=== PATIENT | male | born 1980 | race African-American/Black ===

== ENCOUNTER 2017-09-20 14:54 | Emergency (ER) | payer MEDICARE, MEDICAID ==
[2017-09-20] MEDS ORDERED: MORPHINE SULFATE 10 MG/ML INJ IV ONE (15:41)
[2017-09-20] MEDS ORDERED: NORMAL SALINE 1000 ML 1,000 ML IV ONE (15:41)
[2017-09-20] MEDS ORDERED: CLINDAMYCIN 600 MG/D5W RTU 600 MG/50 ML RTUPB IV ONE (16:00)
[2017-09-20] MEDS ORDERED: MORPHINE SULFATE 10 MG/ML INJ IM ONE (16:34)
--- NOTE | 2017-09-20 17:09 | RADIOLOGY REPORT (SQ) ---
EXAM DESCRIPTION: CT ABD/PELVIS NO ORAL OR IV COMPLETED DATE/TIME: 09/20/2017 4:48 pm REASON FOR STUDY: left buttock erythema, induration, abd pain COMPARISON: None. TECHNIQUE: CT scan of the abdomen and pelvis performed without intravenous or oral contrast. Images reviewed with lung, soft tissue, and bone windows. Reconstructed coronal and sagittal MPR images revi ewed. All images stored on PACS. All CT scanners at this facility use dose modulation, iterative reconstruction, and/or weight based d osing when appropriate to reduce radiation dose to as low as reasonably achievable (ALARA). [facility]: Dose Right [facility]: CareDose [facility]: Dose Right [facility]: Teradose 4D [facility]: [employer] RADIATION DOSE: mGy. LIMITATIONS: None. FINDINGS: LOWER CHEST: No significant findings. No nodules or infiltrates. NON-CONTRASTED LIVER, SPLEEN, ADRENALS: Evaluation limited by lack of IV contrast. No identified sign ificant masses. PANCREAS: No masses. No peripancreatic inflammatory changes. GALLBLADDER: No identified stones by CT criteria. No inflammatory changes to suggest cholecystitis. RIGHT KIDNEY AND URETER: Well circumscribed low density mass(es) statistically most likely to be cyst (s). Assessment limited by lack of iv contrast. No significant calcifications. No hydronephrosis or hydroureter. LEFT KIDNEY AND URETER: No suspicious masses. Assessment limited by lack of IV contrast. No signifi cant calcifications. No hydronephrosis or hydroureter. AORTA AND RETROPERITONEUM: No aneurysm. No retroperitoneal masses or adenopathy. BOWEL AND PERITONEAL CAVITY: No obvious masses or inflammatory changes. No free fluid. APPENDIX: Normal. PELVIS, BLADDER, AND ABDOMINAL WALL:No abnormal masses. No free fluid. Bladder normal. BONES: No significant findings. OTHER: There is fat stranding along the left groin extending minimally into the soft tissues of the flank on the left. No soft tissue abscess is identified. No fluid collection. IMPRESSION: There is fat stranding along the left groin in extending minimally into the soft tissues of the left flank. No soft tissue abscess or fluid collection. COMMENT: Quality ID # [id number]: Final reports with documentation of one or more dose reduction techniques (e.g., Automated exposure control, adjustment of the mA and/or kV according to patient size, use of iterative reconstruction technique) TECHNICAL DOCUMENTATION: JOB ID: [id number]- All Rights Reserved Reading location - IP/workstation name: [email or web address]
[2017-09-20] MEDS ORDERED: OXYCODONE-ACETAMINOPHEN 5-325 MG TABLET PO ONE (17:19)
[2017-09-20] MEDS ORDERED: SULFAMETHOXAZOLE/TRIMETHOPRIM 800-160 MG TABLET PO ONE (17:19)
[2017-09-20] MEDS ORDERED: FENTANYL CITRATE INJ/PF 100 MCG/2 ML AMPUL IM ONE (18:27)
--- NOTE | 2017-09-20 19:01 | ER Document Report ---
ED Skin Rash/Insect Bite/Abscs - General Chief Complaint: Abscess Stated Complaint: POSSIBLE ABSCESS Time Seen by Provider: 09/20/17 15:22 Mode of Arrival: Ambulatory Information source: Patient Notes: Pt is a 37 year old male with HIV, HTN not on any blood pressure meds who presents to the ER today for left buttock pain x 2 days. He denies history of abscess, denies injury, states it's red and swollen, painful worsening over the past 2 days. He admits that the pain from his buttocks seems to be "radiating" to his abdomen in the lower right and left sides, states he can feel "tumors" there that he has "had before." He denies fever at home, stating his temperature has been 99 at the highest, admits to some chills. He hasn't taken his lisinopril-hctz in many months due to not being able to follow up with his doctor. He states he usually has a high heart rate with his high blood pressure. Denies history of MRSA. TRAVEL OUTSIDE OF THE [place] IN LAST 30 DAYS: No - Related Data Allergies/Adverse Reactions: Penicillins Allergy (Verified 09/20/17 15:43) Edema Past Medical History - General Information source: Patient - Social History Smoking Status: Never Smoker Chew tobacco use (# tins/day): No Frequency of alcohol use: None Drug Abuse: None Family History: Reviewed & Not Pertinent Patient has suicidal ideation: No Patient has homicidal ideation: No - Past Medical History Cardiac Medical History: Reports: Hx Hypertension Renal/ Medical History: Denies: Hx Peritoneal Dialysis Review of Systems - Review of Systems Constitutional: See HPI EENT: No symptoms reported Cardiovascular: No symptoms reported Respiratory: No symptoms reported Gastrointestinal: See HPI Genitourinary: No symptoms reported Male Genitourinary: No symptoms reported Musculoskeletal: No symptoms reported Skin: See HPI Hematologic/Lymphatic: No symptoms reported Neurological/Psychological: No symptoms reported Physical Exam - Vital signs Vitals: Temp Pulse Resp BP Pulse Ox 99.7 F 122 H 18 199/121 H 98 09/20/17 15:01 09/20/17 15:01 09/20/17 15:01 09/20/17 15:01 09/20/17 15:01 - Notes Notes: PHYSICAL EXAMINATION: GENERAL: uncomfortable appearing, laying on right side, but in no acute distress. HEAD: Atraumatic, normocephalic. EYES: Pupils equal round and reactive to light, extraocular movements intact, sclera anicteric, conjunctiva are normal. NECK: Normal range of motion, supple without lymphadenopathy LUNGS: CTAB and equal. No wheezes rales or rhonchi. HEART: tachycardic with regular rhythm without murmurs ABDOMEN: Soft, old scars to upper, middle and left lower abd, no tenderness. No guarding, no rebound BACK: no vertebral tenderness, normal ROM GI/: no CVA tenderness EXTREMITIES: Normal range of motion, no pitting edema. No cyanosis. NEUROLOGICAL: Cranial nerves grossly intact. Normal sensory/motor exams. PSYCH: Normal mood, normal affect. SKIN: Warm, Dry, normal turgor, left buttock with mild erythema approximately 3cm by 2 cm to lateral buttock with 3 small areas of mild induration, no fluctance appreciated, no obvious abscess, moderately tender to palpatioin Course - Re-evaluation Re-evalutation: 09/21/17 09:41 pt's heart rate did reduce to under 100 multiple times when I was in the room, however lowest pulse captured from monitor was 103. He does have a history of tachycardia and is hypertensive today. His bp did also reduce here. He feels better with pain medication given here. CT abd/pelvis reveals fat stranding left buttock to left flank but no abscess. He is afebrile here. Pt was started on bactrim, given prescription for his lisinopril/hctz that he was taking bid that he says worked well for his htn. told to follow up with pcp and if symptoms worsen return here. We attempted multiple times to get an IV for labwork, however he is a difficult stick and states "they always have to do a central line." I see no reason for central line today as he looks well clinically and his vitals have improved with pain medication only. I believe his tachycardia of up to 122 on arrival was due to pain to the left buttock. He is also very anxious. He is very grateful for care today and promises to return with worsening symptoms such as fever over 100.4, worsening buttock pain or area of fluctuance that may be able to be drained. Dr. Clarke consulted on case. - Vital Signs Vital signs: Temp Pulse Resp BP Pulse Ox 99.7 F 122 H 13 166/112 H 100 09/20/17 15:01 09/20/17 15:01 09/20/17 19:07 09/20/17 19:07 09/20/17 19:07 Discharge - Discharge Clinical Impression: Cellulitis of left buttock HTN (hypertension) Qualifiers: Hypertension type: unspecified Qualified Code(s): I10 - Essential (primary) hypertension Condition: Stable Disposition: HOME, SELF-CARE Additional Instructions: Return immediately for any new or worsening symptoms. Follow up with primary care provider, call tomorrow to make followup appointment. Prescriptions: Lisinopril/Hydrochlorothiazide [Lisinopril-Hctz 20-12.5 mg Tab] 1 each PO BID # 60 tablet Oxycodone HCl/Acetaminophen [Percocet 5-325 mg Tablet] 1 - 2 tab PO Q4H PRN #15 tablet PRN Reason: Sulfamethoxazole/Trimethoprim [Bactrim 400-80 mg Tablet] 1 each PO BID #20 tablet
[2017-09-20 19:09] VITALS: BP 166/112
== END 2017-09-20 19:17 | disposition home or self-care (01) ==
LOC: ER 14:54
DX: L03.317 Cellulitis of buttock (principal); I10 Essential (primary) hypertension; T46.4X6A Underdosing of angiotensin-converting-enzyme inhibitors, initial encounter; T50.2X6A Underdosing of carbonic-anhydrase inhibitors, benzothiadiazides and other diuretics, initial encounter; Z91.128 Patient's intentional underdosing of medication regimen for other reason; Z91.14 Patient's other noncompliance with medication regimen; R10.30 Lower abdominal pain, unspecified; F41.9 Anxiety disorder, unspecified; R00.0 Tachycardia, unspecified; Z21 Asymptomatic human immunodeficiency virus [HIV] infection status; Z88.0 Allergy status to penicillin
CPT/HCPCS: 99284; 96372; 74176; J3010; J2270; A9270 ×2

== ENCOUNTER 2018-04-06 08:38 | Emergency (ER) | payer MEDICARE, MEDICAID ==
[2018-04-06] MEDS ORDERED: MORPHINE SULFATE 10 MG/ML INJ IV ONE (09:26)
[2018-04-06] MEDS ORDERED: ONDANSETRON HCL INJ/PF 4 MG/2 ML SDV IV ONE (09:26)
[2018-04-06] MEDS ORDERED: METOCLOPRAMIDE HCL ORAL SOLN 10 MG/10 ML UDCUP PO ONE (09:26)
[2018-04-06] MEDS ORDERED: MAG HYDROX/AL HYDROX/SIMETH SUSP 30 ML UDCUP PO ONE (09:26)
[2018-04-06] MEDS ORDERED: LIDOCAINE 2% VISCOUS SOLN 20 ML UDCUP PO PRN (09:26)
[2018-04-06] MEDS ORDERED: LIDOCAINE 2% VISCOUS SOLN 20 ML UDCUP PO ONE (09:26)
[2018-04-06] MEDS ORDERED: MAG HYDROX/AL HYDROX/SIMETH SUSP 30 ML UDCUP PO PRN (09:26)
[2018-04-06] MEDS ORDERED: RINGERS SOLUTION,LACTATED 1,000 ML IV ONE (09:30)
[2018-04-06] MEDS ORDERED: SULFAMETHOX/TRIMETH 800-160 MG/10 ML VIAL IV ONE (09:30)
--- NOTE | 2018-04-06 09:35 | ER Document Report ---
ED General <SANDRA DALAL - Last Filed: 04/06/18 23:38> - General Mode of Arrival: Ambulatory Information source: Patient, [facility] Records TRAVEL OUTSIDE OF THE [place] IN LAST 30 DAYS: No - HPI Onset: Last week Onset/Duration: Gradual, Constant, Persistent, Worse Quality of pain: Burning, Throbbing Severity: Moderate Associated symptoms: Chest pain, Chills. denies: Diarrhea, Fever, Nausea, Vomiting, Shortness of breath, Weakness Exacerbated by: Food Relieved by: Denies Similar symptoms previously: No Recently seen / treated by doctor: Yes <GEORGIA CARCAMO - Last Filed: 04/07/18 11:43> - General Chief Complaint: Epigastric Pain Stated Complaint: CHEST/STOMACH PAIN, VOMITING Time Seen by Provider: 04/06/18 08:59 Notes: 37-year-old male with hypertension, HIV, esophageal ulcers presents with complaint of chest pain that started 1 week prior to arrival. Patient states that he underwent an upper endoscopy 1 week prior to arrival with and has had a constant throbbing chest pain since then. Patient states the pain has not went away at all. Patient has had associated nausea without vomiting and some mild lightheadedness. He does report poor p.o. intake secondary to pain. Patient is an HIV patient and has not been able to take his daily Bactrim or antiviral therapy for 1 week. Patient denies any fever, chills , vomiting, abdominal pain. (GEORGIA CARCAMO) - Related Data Allergies/Adverse Reactions: Penicillins Allergy (Verified 04/06/18 08:41) Edema Past Medical History - General Information source: Patient, Dr. Mansfield, [facility] Records - Social History Smoking Status: Never Smoker Chew tobacco use (# tins/day): No Frequency of alcohol use: None Drug Abuse: None Lives with: Family Family History: Reviewed & Not Pertinent Patient has suicidal ideation: No Patient has homicidal ideation: No - Past Medical History Cardiac Medical History: Reports: Hx Hypertension Renal/ Medical History: Denies: Hx Peritoneal Dialysis GI Medical History: Reports: Hx Gastroesophageal Reflux Disease, Hx Ulcer <GEORGIA CARCAMO - Last Filed: 04/07/18 11:43> Review of Systems <SANDRA DALAL - Last Filed: 04/06/18 23:38> <GEORGIA CARCAMO - Last Filed: 04/07/18 11:43> - Review of Systems Notes: REVIEW OF SYSTEMS: CONSTITUTIONAL : Denies fever, sweats. Denies recent illness. Denies weight loss, recent hospitalizations. EENT: Denies visual changes, eye pain. Denies sore throat, oral lesions, difficulty swallowing. CARDIOVASCULAR: Denies palpitations. Denies lower extremity edema. RESPIRATORY: Denies cough. Denies shortness of breath, wheezing. GASTROINTESTINAL: Denies abdominal pain or distention. Denies nausea, vomiting , or diarrhea. Denies blood in vomitus, stools, or per rectum. Denies black, tarry stools. Denies constipation. GENITOURINARY: Denies difficulty urinating, painful urination, frequency, blood in urine, testicular pain or penile discharge. MUSCULOSKELETAL: Denies back or neck pain or stiffness. Denies joint pain or swelling. SKIN: Denies rash, lesions or sores. HEMATOLOGIC : Denies easy bruising or bleeding. LYMPHATIC: Denies swollen glands. NEUROLOGICAL: Denies confusion or altered mental status. Denies loss of consciousness. Denies dizziness Denies headache. Denies weakness or paralysis. Denies problems difficulty with ambulation, slurred speech. Denies sensory loss, numbness, or tingling. Denies seizures. PSYCHIATRIC: Denies anxiety or stress. Denies depression, suicidal ideation, or (GEORGIA CARCAMO) Physical Exam <MULGUETASANDRA Bernal - Last Filed: 04/06/18 23:38> <GEORGIA CARCAMO - Last Filed: 04/07/18 11:43> - Vital signs Vitals: Temp Pulse Resp BP Pulse Ox 98.5 F 106 H 18 214/131 H 97 04/06/18 08:41 04/06/18 08:41 04/06/18 08:41 04/06/18 08:41 04/06/18 08:41 - Notes Notes: PHYSICAL EXAMINATION: GENERAL: Tearful, appears to be uncomfortable HEAD: Atraumatic, normocephalic. EYES: Pupils equal round and reactive to light, extraocular movements intact, sclera anicteric, conjunctiva are normal. ENT: Nares patent, oropharynx clear without exudates. Moist mucous membranes. NECK: Normal range of motion, supple without lymphadenopathy. Airway patent LUNGS: Breath sounds clear to auscultation bilaterally and equal. No wheezes rales or rhonchi. HEART: Regular rate and rhythm without murmurs. Chest wall pain with palpation. No crepitus. ABDOMEN: Soft, nontender, nondistended abdomen. No guarding, no rebound. No masses appreciated. Musculoskeletal: Normal range of motion, no pitting or edema. No cyanosis. NEUROLOGICAL: Cranial nerves grossly intact. Normal speech, normal gait. Normal sensory, motor exams PSYCH: Normal mood, normal affect. SKIN: Warm, Dry, normal turgor, no rashes or lesions noted. (GEORGIA CARCAMO) Course - Laboratory Result Diagrams: 04/06/18 09:35 04/06/18 09:35 <SANDRA DALAL - Last Filed: 04/06/18 23:38> - Laboratory Result Diagrams: 04/07/18 08:40 04/06/18 09:35 - Diagnostic Test Radiology reviewed: Image reviewed, Reports reviewed - EKG Interpretation by [place] EKG shows normal: Sinus rhythm Rate: Normal Rhythm: NSR Voltage: Consistant with LVH When compared to previous EKG there are: Previous EKG unavailable - Diffuse T wave inversion. <GEORGIA CARCAMO - Last Filed: 04/07/18 11:43> - Re-evaluation Re-evalutation: 04/06/18 17:26 F/U with VQ scan and troponin per Dr. Segura, both tests negative. 04/06/18 18:30 5 and called stated they stepped patient down to PCU bed as EKG discussed with Dr. Carcamo has no changes from previous EKG on file at provided. Cardiology will admit patient but no PCU beds available at this time and patient is on hold. Nitro drip is being continued patient resting comfortably at this time. 04/06/18 23:38 Repeat troponins all negative, wnl, still awaiting transport. (SANDRA DALAL) Laboratory 04/06/18 04/06/18 04/06/18 09:35 09:35 09:35 WBC 4.3 RBC 5.66 H Hgb 15.1 Hct 45.4 MCV 80 MCH 26.6 L MCHC 33.2 RDW 14.1 H Plt Count 170 Total Counted 100 Seg Neutrophils % Not Reportable Seg Neuts % (Manual) 25 L Lymphocytes % Not Reportable Lymphocytes % (Manual) 58 H Atypical Lymphs % 8 Monocytes % Not Reportable Monocytes % (Manual) 7 Eosinophils % Not Reportable Eosinophils % (Manual) 2 Basophils % Not Reportable Basophils % (Manual) 0 Absolute Neutrophils Not Reportable Abs Neuts (Manual) 1.1 L Absolute Lymphocytes Not Reportable Abs Lymphs (Manual) 2.8 Absolute Monocytes Not Reportable Abs Monocytes (Manual) 0.3 Absolute Eosinophils Not Reportable Absolute Eos (Manual) 0.1 Absolute Basophils Not Reportable Abs Basophils (Manual) 0.0 Platelet Comment ADEQUATE Polychromasia SLIGHT Anisocytosis SLIGHT Sodium 143.0 Potassium 4.2 Chloride 104 Carbon Dioxide 29 Anion Gap 10 BUN 17 Creatinine 1.37 H Est GFR ( Amer) > 60 Est GFR (Non-Af Amer) 58 L Glucose 93 Calcium 9.6 Total Bilirubin 0.6 Direct Bilirubin 0.4 Neonat Total Bilirubin Not Reportable Neonat Direct Bilirubin Not Reportable Neonat Indirect Bili Not Reportable AST 60 H ALT 62 Alkaline Phosphatase 112 Troponin I 0.022 Total Protein 8.8 H Albumin 4.4 Lipase 63.4 04/06/18 11:17 WBC RBC Hgb Hct MCV MCH MCHC RDW Plt Count Total Counted Seg Neutrophils % Seg Neuts % (Manual) Lymphocytes % Lymphocytes % (Manual) Atypical Lymphs % Monocytes % Monocytes % (Manual) Eosinophils % Eosinophils % (Manual) Basophils % Basophils % (Manual) Absolute Neutrophils Abs Neuts (Manual) Absolute Lymphocytes Abs Lymphs (Manual) Absolute Monocytes Abs Monocytes (Manual) Absolute Eosinophils Absolute Eos (Manual) Absolute Basophils Abs Basophils (Manual) Platelet Comment Polychromasia Anisocytosis Sodium Potassium Chloride Carbon Dioxide Anion Gap BUN Creatinine Est GFR ( Amer) Est GFR (Non-Af Amer) Glucose Calcium Total Bilirubin Direct Bilirubin Neonat Total Bilirubin Neonat Direct Bilirubin Neonat Indirect Bili AST ALT Alkaline Phosphatase Troponin I 0.024 Total Protein Albumin Lipase Chest X-Ray 04/06/18 09:26 IMPRESSION: NO ACUTE RADIOGRAPHIC FINDING IN THE CHEST. Chest CT 04/06/18 09:35 IMPRESSION: NO SIGNIFICANT FINDING ON NON-CONTRASTED CHEST CT. 37-year-old male with hypertension, HIV presents with complaint of 1 week of persistent chest pain after undergoing an endoscopy. He describes the pain as pressure-like throbbing and associated with nausea and lightheadedness. Patient states that he has been unable to eat, drink or take any of his medications including his antiviral medications. Upon arrival patient is tachycardic, markedly hypertensive. Initially a CT of the chest was obtained to assess for esophageal perforation and this was within normal limits. Patient did receive sublingual nitro, multiple doses of narcotic pain medication and metoprolol without improvement of his chest pain or blood pressure. I did attempt to obtain a CTA but patient's IVs have blown x2. V/Q scan is pending. EKG was obtained and does show diffuse T wave inversions, left ventricular hypertrophy. I did not have an EKG to compare it to until I spoke to the cardiac connection nurse at [facility] who reviewed previous EKGs they had on file. Patient was given Lovenox prophylactically he did also receive a dose of Bactrim because he is on this chronically and has not been able to take it. Nitro drip was initiated. Systolic goal blood pressure 160- 170. 04/06/18 09:29 Patient's client relationship consultant Dr. Patel who has been contacted regarding the patient's complaint of chest pain since his endoscopy 1 week ago. 04/06/18 09:34 I was able to contact the patient's client relationship consultant who recommends CT of the chest and pain control. 04/06/18 12:40 Patient was reevaluated and despite 2 doses of Dilaudid, Zofran, GI cocktail he is having persistent pain. He is still significantly tachycardic with a heart rate in the 120s-130s. At this time I will obtain a CTA. 04/06/18 13:30 I spoke to our hospitalist who believes that with the patient's persistent chest pain he needs to be transferred to a facility that can perform a cardiac catheterization if it becomes necessary. Patient prefers [facility]. 04/06/18 13:37 Contacted [facility] cardiac connection for transfer. Awaiting callback. They were able to pull up an old EKG from 2013 which does show similar T wave inversion, left ventricular hypertrophy and minimal ST elevation in the anterior leads. 04/06/18 14:12 Patient accepted to provide [facility] by Dr. Burton. I did speak to his fellow who accepted on his behalf, suspects hypertensive urgency versus emergency. 04/06/18 14:13 04/06/18 14:14 04/06/18 15:17 Patient reevaluated. Despite an improvement in his blood pressure to 188/98 he continues to have chest pain. EKG repeated and unchanged. (GEORGIA CARCAMO) - Vital Signs Vital signs: Temp Pulse Resp BP Pulse Ox 98.3 F 106 H 14 171/116 H 95 04/07/18 01:08 04/06/18 08:41 04/07/18 11:21 04/07/18 11:21 04/07/18 11:21 - Laboratory Laboratory results interpreted by me: 04/06/18 04/06/18 04/07/18 09:35 09:35 08:40 RBC 5.66 H Hgb 13.1 L MCV 79 L MCH 26.6 L RDW 14.1 H 14.2 H Seg Neuts % (Manual) 25 L Lymphocytes % (Manual) 58 H Abs Neuts (Manual) 1.1 L Creatinine 1.37 H Est GFR (Non-Af Amer) 58 L AST 60 H Total Protein 8.8 H Critical Care Note - Critical Care Note Total time excluding time spent on procedures (mins): 40 - Minutes of critical care time spent in direct contact evaluating and reevaluating the patient, treating symptoms, reviewing labs and studies and speaking with family and consultants excluding any procedures <GEORGIA CARCAMO - Last Filed: 04/07/18 11:43> Discharge <SANDRA DALAL - Last Filed: 04/06/18 23:38> <GEORGIA CARCAMO - Last Filed: 04/07/18 11:43> - Discharge Clinical Impression: Renal insufficiency, Hypertensive urgency, Tachycardia, T wave inversion in EKG , Left ventricular hypertrophy Chest pain Qualifiers: Chest pain type: unspecified Qualified Code(s): R07.9 - Chest pain, unspecified Condition: Good Disposition: [facility]
[2018-04-06 09:43] LABS: HEMATOCRIT 45.4 % (37.9-51.0); HEMOGLOBIN 15.1 g/dL (13.5-17.0); MEAN CORPUSCULAR HEMOGLOBIN 26.6 pg (27.0-33.4); MEAN CORPUSCULAR HGB CONC 33.2 g/dL (32.0-36.0); MEAN CORPUSCULAR VOLUME 80 fl (80-97); PLATELET COUNT 170 10^3/uL (150-450); RED BLOOD COUNT 5.66 10^6/uL (4.35-5.55); RED CELL DISTRIBUTION WIDTH 14.1 % (11.5-14.0); WHITE BLOOD COUNT 4.3 10^3/uL (4.0-10.5)
[2018-04-06 10:00] LABS: ALANINE AMINOTRANSFERASE 62 U/L (21-72); ALBUMIN 4.4 g/dL (3.5-5.0); ALKALINE PHOSPHATASE 112 U/L (38-126); ANION GAP 10 (5-19); ASPARTATE AMINO TRANSFERASE 60 U/L (17-59); BILIRUBIN,DIRECT 0.4 mg/dL (0.0-0.4); BILIRUBIN,TOTAL 0.6 mg/dL (0.2-1.3); BLOOD UREA NITROGEN 17 mg/dL (7-20); CALCIUM 9.6 mg/dL (8.4-10.2); CARBON DIOXIDE 29 mmol/L (22-30); CHLORIDE 104 mmol/L (98-107); GLUCOSE 93 mg/dL (75-110); LIPASE 63.4 U/L (23-300); POTASSIUM 4.2 mmol/L (3.6-5.0); TOTAL PROTEIN 8.8 g/dL (6.3-8.2)
[2018-04-06 10:13] LABS: ABSOLUTE LYMPHOCYTES# (MANUAL) 2.8 10^3/uL (0.5-4.7); ABSOLUTE MONOCYTES # (MANUAL) 0.3 10^3/uL (0.1-1.4); ABSOLUTE NEUTROPHILS# (MANUAL) 1.1 10^3/uL (1.7-8.2); BASOPHILS % (MANUAL) 0 % (0-2); EOSINOPHILS % (MANUAL) 2 % (0-6); LYMPHOCYTES % (MANUAL) 58 % (13-45); MONOCYTES % (MANUAL) 7 % (3-13); SEGMENTED NEUTROPHILS % (MAN) 25 % (42-78); TOTAL CELLS COUNTED 100
[2018-04-06 10:14] LABS: ANISOCYTOSIS SLIGHT
[2018-04-06 10:15] LABS: PLATELET COMMENT ADEQUATE; POLYCHROMASIA SLIGHT
--- NOTE | 2018-04-06 10:29 | RADIOLOGY REPORT (SQ) ---
EXAM DESCRIPTION: CHEST 2 VIEWS COMPLETED DATE/TIME: 04/06/2018 10:07 am REASON FOR STUDY: chest pain COMPARISON: None. EXAM PARAMETERS: NUMBER OF VIEWS: two views TECHNIQUE: Digital Frontal and Lateral radiographic views of the chest acquired. RADIATION DOSE: NA LIMITATIONS: none FINDINGS: LUNGS AND PLEURA: No opacities, masses or pneumothorax. No pleural effusion. MEDIASTINUM AND HILAR STRUCTURES: No masses or contour abnormalities. HEART AND VASCULAR STRUCTURES: Heart upper limits of normal size. No evidence for failure. BONES: No acute findings. HARDWARE: None in the chest. OTHER: No other significant finding. IMPRESSION: NO ACUTE RADIOGRAPHIC FINDING IN THE CHEST. TECHNICAL DOCUMENTATION: JOB ID: [id number] 1908 [employer]- All Rights Reserved Reading location - IP/workstation name: [email or web address]
--- NOTE | 2018-04-06 10:31 | RADIOLOGY REPORT (SQ) ---
EXAM DESCRIPTION: CT CHEST WITHOUT COMPLETED DATE/TIME: 04/06/2018 10:13 am REASON FOR STUDY: Chest pain status post endoscopy COMPARISON: None. TECHNIQUE: CT scan performed of the chest without intravenous contrast. Images reviewed with lung, soft tissue and bone windows. Reconstructed coronal and sagittal MPR images reviewed. All images st ored on PACS. All CT scanners at this facility use dose modulation, iterative reconstruction, and/or weight based d osing when appropriate to reduce radiation dose to as low as reasonably achievable (ALARA). [facility]: Dose Right [facility]: CareDose [facility]: Dose Right [facility]: Teradose 4D [facility]: [employer] RADIATION DOSE: CT Rad equipment meets quality standard of care and radiation dose reduction techniq ues were employed. CTDIvol: 16.4 mGy. DLP: 661 mGy-cm. mGy. LIMITATIONS: No technical limitations. FINDINGS: LUNGS AND PLEURA: No masses, infiltrates, or pneumothorax. No pleural effusions or pleura l calcifications. HILAR AND MEDIASTINAL STRUCTURES: No identified masses or abnormal nodes. No obvious aneurysm. HEART AND VASCULAR STRUCTURES: No aneurysm. No pericardial effusion. UPPER ABDOMEN: Right renal cysts. Limited exam. THYROID AND OTHER SOFT TISSUES: No masses. No adenopathy. BONES: No significant finding. HARDWARE: None in the chest. OTHER: No other significant findings. IMPRESSION: NO SIGNIFICANT FINDING ON NON-CONTRASTED CHEST CT. TECHNICAL DOCUMENTATION: JOB ID: [id number] Quality ID # [id number]: Final reports with documentation of one or more dose reduction techniques (e.g., Au tomated exposure control, adjustment of the mA and/or kV according to patient size, use of iterative reconstruction technique) 2010 [employer]- All Rights Reserved Reading location - IP/workstation name: [email or web address]
[2018-04-06] MEDS ORDERED: NORMAL SALINE 1000 ML 1,000 ML IV ONE (10:54)
[2018-04-06] MEDS ORDERED: HYDROMORPHONE HCL INJ/PF 2 MG/ML AMPULE IV ONE ×2 (11:00→12:38)
[2018-04-06] MEDS ORDERED: PROMETHAZINE HCL INJ 25 MG/1 ML VIAL IV ONE ×3 (11:01→20:16)
[2018-04-06] MEDS ORDERED: NITROGLYCERIN 0.4 MG/TAB 25 TAB/BOTTLE SL PRN (13:31)
[2018-04-06] MEDS ORDERED: ASPIRIN 81 MG TABLET, CHEWABLE PO ONE (13:34)
[2018-04-06] MEDS ORDERED: ASPIRIN 81 MG TABLET, CHEWABLE ONE (13:35)
[2018-04-06] MEDS ORDERED: METOPROLOL TARTRATE PF/INJ 5 MG/5 ML SDV IV ONE (13:49)
[2018-04-06] MEDS: ENOXAPARIN SODIUM INJ 100 MG/1 ML DISP.SYRIN SUBCUT SCH (14:09)
[2018-04-06] MEDS: NITROGLYCERIN/D5W 50 MG/250 ML RTUINJ IV PRN (14:34)
[2018-04-06] MEDS ORDERED: PANTOPRAZOLE SODIUM 40 MG VIAL IV ONE (15:17)
--- NOTE | 2018-04-06 16:08 | RADIOLOGY REPORT (SQ) ---
EXAM DESCRIPTION: NM LUNG VENT/PERF SCAN COMPLETED DATE/TIME: 04/06/2018 3:58 pm REASON FOR STUDY: SOB TACHY COMPARISON: Chest x-ray and chest CT dated 04/06/2018. RADIONUCLIDE AND DOSE: 5.39 millicuries TC-99m MAA Intravenous 31.3 millicuries TC-99m DTPA Inhaled aerosol TECHNIQUE: Anterior and posterior views of the lungs acquired post ventilation of DTPA aerosol. Six views of the lungs acquired following injection of MAA. LIMITATIONS: None. FINDINGS: VENTILATION: Symmetric and homogeneous distribution of DTPA aerosol during ventilatory pha se. No significant areas of photopenia. PERFUSION: Perfusion images with normal homogenous activity and no wedge-shaped or segmental defects. No ventilation-perfusion mismatches. OTHER: No other significant finding. IMPRESSION: NORMAL VENTILATION-PERFUSION LUNG SCAN. NEGATIVE FOR PULMONARY EMBOLI. TECHNICAL DOCUMENTATION: JOB ID: [id number] [employer]- All Rights Reserved Reading location - IP/workstation name: [email or web address]
[2018-04-06] MEDS: HYDROMORPHONE HCL INJ/PF 2 MG/ML AMPULE IV PRN ×2 (20:08→23:46)
[2018-04-07] MEDS: ENOXAPARIN SODIUM INJ 100 MG/1 ML DISP.SYRIN SUBCUT SCH ×3 (01:02→22:31)
[2018-04-07] MEDS ORDERED: FAMOTIDINE INJ/PF 20 MG/2 ML SDV IV ONE (02:29)
--- NOTE | 2018-04-07 02:30 | ER Document Report ---
Doctor's Note Notes: 04/07/18 02:29 Patient's blood pressure is now at 135/101, the nurse is steadily titrating his nitroglycerin drip down. At this time the patient is complaining of feeling "itchy". He will be given a dose of Pepcid 20 mg IV. 04/07/18 04:22 Patient continues to have itching despite the Pepcid earlier. He was however continuing to receive regular doses of Dilaudid and that may be the source of his itching. We will try a dose of Benadryl and see if that helps the itching.
[2018-04-07] MEDS: HYDROMORPHONE HCL INJ/PF 2 MG/ML AMPULE IV PRN ×6 (04:11→23:10)
[2018-04-07] MEDS ORDERED: DIPHENHYDRAMINE HCL 50 MG/ML VIAL IV ONE ×2 (04:18→23:44)
[2018-04-07] MEDS ORDERED: PROMETHAZINE HCL INJ 25 MG/1 ML VIAL IV ONE ×2 (07:56→16:54)
[2018-04-07] MEDS: NITROGLYCERIN/D5W 50 MG/250 ML RTUINJ IV PRN (08:10)
--- NOTE | 2018-04-07 08:19 | EKG REPORT ---
SEVERITY:- ABNORMAL ECG - SINUS RHYTHM RUN OF VENTRICULAR PREMATURE COMPLEXES ABERRANT COMPLEX, POSSIBLY SUPRAVENTRICULAR LEFT ATRIAL ABNORMALITY LEFT VENTRICULAR HYPERTROPHY ABNORMAL T, CONSIDER ISCHEMIA, LATERAL LEADS : Confirmed by: Tanesha Grady MD 07-Apr-2018 08:19:01
--- NOTE | 2018-04-07 08:19 | EKG REPORT ---
SEVERITY:- ABNORMAL ECG - SINUS RHYTHM RIGHT ATRIAL ABNORMALITY LVH WITH SECONDARY REPOLARIZATION ABNORMALITY : Confirmed by: Tanesha Grady MD 07-Apr-2018 08:19:08
--- NOTE | 2018-04-07 08:19 | EKG REPORT ---
SEVERITY:- ABNORMAL ECG - SINUS RHYTHM LEFT VENTRICULAR HYPERTROPHY ABNORMAL T, CONSIDER ISCHEMIA, LATERAL LEADS ANTERIOR ST ELEVATION, PROBABLY DUE TO LVH : Confirmed by: Tanesha Grady MD 07-Apr-2018 08:19:14
[2018-04-07 08:49] LABS: HEMATOCRIT 38.4 % (37.9-51.0); HEMOGLOBIN 13.1 g/dL (13.5-17.0); MEAN CORPUSCULAR HGB CONC 34.1 g/dL (32.0-36.0); MEAN CORPUSCULAR VOLUME 79 fl (80-97); PLATELET COUNT 151 10^3/uL (150-450); RED BLOOD COUNT 4.85 10^6/uL (4.35-5.55); RED CELL DISTRIBUTION WIDTH 14.2 % (11.5-14.0); WHITE BLOOD COUNT 4.8 10^3/uL (4.0-10.5)
--- NOTE | 2018-04-07 10:44 | ER Document Report ---
Doctor's Note Notes: 04/07/18 10:42 Provider note: Chart reviewed and patient interviewed. Patient's been having chest pains for the past week since he had a endoscopy of his esophagus. Came in here for chest pain this been present since that procedure was performed. He has had negative cardiac workup, but was extremely hypertensive. Workup has included a negative VQ scan negative CT of the chest. Patient is being transferred to [facility], but awaiting a bed there. Patient says he continues to have this chest pain even though he is on a nitroglycerin drip. Current blood pressure is in the 150s systolic. Patient appears to be stable for transfer. Yenny Espinoza MD
[2018-04-07 14:18] LABS: APPEARANCE,URINE CLEAR; BILIRUBIN,URINE NEGATIVE (NEGATIVE); COLOR,URINE YELLOW; GLUCOSE, URINE NEGATIVE (NEGATIVE); KETONES,URINE NEGATIVE (NEGATIVE); LEUKOCYTE ESTERASE,URINE NEGATIVE (NEGATIVE); NITRITE,URINE NEGATIVE (NEGATIVE); PROTEIN,URINE NEGATIVE (NEGATIVE); URINE SPECIFIC GRAVITY 1.016; UROBILINOGEN,URINE NEGATIVE mg/dL (<2.0)
[2018-04-07] MEDS ORDERED: AMLODIPINE BESYLATE 10 MG TABLET PO ONE (15:27)
[2018-04-07] MEDS ORDERED: LISINOPRIL 10 MG TABLET PO ONE (15:27)
[2018-04-07] MEDS ORDERED: METOCLOPRAMIDE HCL INJ/PF 10 MG/2 ML SDV IV ONE (19:57)
--- NOTE | 2018-04-07 22:52 | ER Document Report ---
Doctor's Note Notes: 04/07/18 22:52 Patient is now requesting transfer to [facility]. I [facility] call [facility] and they state that there is a possibility that the patient will have a bed tomorrow morning. [facility] contacted awaiting bed status. Patient made aware of the bed status at both [facility] and [facility]. He is resting comfortably. I have requested again for his family to bring in his home medications. 04/07/18 22:59 04/08/18 12:28
[2018-04-07] MEDS ORDERED: DIPHENHYDRAMINE HCL 50 MG/ML VIAL ONE (23:49)
[2018-04-08] MEDS: HYDROMORPHONE HCL INJ/PF 2 MG/ML AMPULE IV PRN ×8 (02:18→23:45)
[2018-04-08] MEDS ORDERED: NORMAL SALINE 1000 ML 1,000 ML IV ONE (02:54)
[2018-04-08] MEDS: METOCLOPRAMIDE HCL INJ/PF 10 MG/2 ML SDV IV PRN ×3 (03:22→21:41)
[2018-04-08] MEDS: NITROGLYCERIN/D5W 50 MG/250 ML RTUINJ IV PRN (03:32)
--- NOTE | 2018-04-08 05:45 | ER Document Report ---
Doctor's Note Notes: 04/08/18 05:44 Nurse asked me to evaluate the patient for peripheral IV access. He does have peripheral IV in the right hand which is working appropriately however she is afraid that it may stop working soon just because the remainder of his IVs have blown after a short period of time. Currently the IV in right hand is working properly. I did look under ultrasound guidance the right antecubital area. There was one vessel in the right antecubital area that was easily cannulated with good flash but the Angiocath would not advance. Therefore found another vessel in the left distal upper arm. I was also able to get a good flash of this vessel that was able to flush the line however it was positional and it was because the patient some pain with flushing therefore I removed this as well. Patient is required PICC lines in the past. I will place a PICC line consult for daytime today. Patient is still here and has not yet been transferred then we will have a PICC line placed during the day today. Otherwise is doing well with no further complaints. Patient is vitally stable. Dictation of this chart was performed using voice recognition software; therefore, there may be some unintended grammatical errors.
[2018-04-08] MEDS: FAMOTIDINE INJ/PF 20 MG/2 ML SDV IV SCH (10:14)
[2018-04-08] MEDS: LISINOPRIL 10 MG TABLET PO SCH (10:22)
[2018-04-08] MEDS: AMLODIPINE BESYLATE 10 MG TABLET PO SCH (10:22)
[2018-04-08] MEDS: DIPHENHYDRAMINE HCL 50 MG/ML VIAL IV PRN ×2 (10:45→19:42)
[2018-04-08] MEDS: ENOXAPARIN SODIUM INJ 100 MG/1 ML DISP.SYRIN SUBCUT SCH ×2 (10:49→22:00)
[2018-04-08] MEDS: ENOXAPARIN SODIUM INJ 40 MG/0.4 ML DISP.SYRIN SUBCUT SCH (10:49)
--- NOTE | 2018-04-08 12:25 | EKG REPORT ---
SEVERITY:- ABNORMAL ECG - SINUS RHYTHM PROBABLE LEFT ATRIAL ABNORMALITY LEFT VENTRICULAR HYPERTROPHY ABNORMAL T, CONSIDER ISCHEMIA, LATERAL LEADS BORDERLINE PROLONGED QT INTERVAL : Confirmed by: Tanesha Grady MD 08-Apr-2018 12:24:44
--- NOTE | 2018-04-08 15:12 | RADIOLOGY REPORT (SQ) ---
EXAM DESCRIPTION: PICC INSERTION; FLUORO/CV PLACEMENT; U/S GUIDE FOR VASCULAR ACCESS COMPLETED DATE/TIME: 04/08/2018 2:59 pm REASON FOR STUDY: poor IV access; IV ACCESS COMPARISON: None. FLUOROSCOPY TIME: 51 seconds 4 images saved to PACS. TECHNIQUE: Fluoroscopic and ultrasound guided PICC placement. LIMITATIONS: None. PROCEDURE: After written consent and assessment were obtained, the patient was brought into the fluo roscopy room and placed supine on the table. Ultrasound evaluation of potential access sites were per formed. After successfully identifying a patent left basilic vein, the left arm was prepped and drape d in a sterile fashion along with the ultrasound probe. The entry site was anesthetized with 1% lidoc darron. A 21 gauge 7 cm needle was advanced through the skin and into the basilic vein under live ultra sound guidance. An ultrasound image was saved to PACS confirming access site. A .018 guide wire was then inserted through the needle and into the venous system. The needle was then removed and an 11 b lade scalpel was used to make a 1cm skin incision. A 5 fr peel-away sheath was advanced over the wir e and into the venous system. A measurement was then made using the existing wire and live fluoroscop ic guidance. The wire was then removed and trimmed. The PICC was advanced through the peel-away sheat h and into the venous system. The peel-away sheath was removed and the catheter was adhered to the pa tients arm with a stat lock. The catheter was then aspirated and flushed and a sterile bandage was pl aced over the access site. A fluoroscopic spot image was saved to PACS confirming the catheter tip w ithin the superior vena cava. IMPRESSION: SUCCESSFUL PLACEMENT OF A 5 FR DUAL LUMEN 42 CM PICC IN THE LEFT BASILIC VEIN. COMMENT: Patient medication list reviewed: Yes- Quality ID# 130:Eligible professional attests to doc umenting in the medical record they obtained, updated, or reviewed the patient's current medications. . Quality ID 145: Final reports for procedures using fluoroscopy that document radiation exposure fabiano lisa, or exposure time and number of fluorographic images (if radiation exposure indices are not avail able) Quality ID #76: The patient was prepped and draped using maximum sterile barrier technique including cap, mask, sterile gown, sterile gloves, a large sterile sheet, hand hygiene, and 2% Chlorhexidine fo r cutaneous antisepsis. When ultrasound is used, sterile ultrasound techniques are followed requiring sterile gel and sterile probes. TECHNICAL DOCUMENTATION: JOB ID: [id number] [employer]- All Rights Reserved rev-10/23 Reading location - IP/workstation name: [email or web address]
--- NOTE | 2018-04-08 15:47 | RADIOLOGY REPORT (SQ) ---
EXAM DESCRIPTION: BARIUM SWALLOW ESOPHAGUS COMPLETED DATE/TIME: 04/08/2018 3:24 pm REASON FOR STUDY: post endoscope chest pain COMPARISON: None. TECHNIQUE: Under fluoroscopic guidance, patient ingested 50 mL Omnipaque 300 followed by thin barium . Fluoroscopic spot images and routine radiographic images acquired and stored on PACS. 12 MM BARIUM TABLET GIVEN: Yes. Delayed passage at the GE junction LIMITATIONS: None. FLUOROSCOPY TIME: 3 minutes 2 seconds of fluoroscopy was used. 17 images saved to PACS. FINDINGS: NEUROMUSCULAR COORDINATION OF SWALLOW: Normal. No aspiration. ESOPHAGEAL MOTILITY: Normal peristalsis. No esophageal spasm. ESOPHAGEAL MUCOSA: No evidence of esophageal perforation or extravasation of contrast can be seen. S ome mucosal thickening seen at the GE junction causing delay in passage of the 12 mm barium tablet. No definite stricture can be seen. GASTRO-ESOPHAGEAL JUNCTION: Small hiatal hernia. Mild esophageal reflux was identified. Delayed pas spring of a 12 mm barium tablet. . NON-GI TRACT STRUCTURES: No significant finding. OTHER: No other significant finding. IMPRESSION: NO EVIDENCE OF EXTRAVASATION OR LEAK OF CONTRAST FROM THE ESOPHAGUS. MILD MUCOSAL THICK ENING AT THE GE JUNCTION. THERE IS DELAY IN PASSAGE 12 MM BARIUM TABLET INTO THE STOMACH. COMMENT: Quality ID 145: Final reports for procedures using fluoroscopy that document radiation exp osure indices, or exposure time and number of fluorographic images (if radiation exposure indices are not available) TECHNICAL DOCUMENTATION: JOB ID: [id number] [employer]- All Rights Reserved Reading location - IP/workstation name: [email or web address] [id number]
--- NOTE | 2018-04-08 16:44 | ER Document Report ---
Doctor's Note Notes: 04/08/18 9:36 Patient seen and examined, vital signs reviewed. All charts notes reviewed, and imaging and laboratory data reviewed. I met with the patient, he was still complaining of pain, only relieved with Dilaudid, is also requesting Benadryl at times. He was on a nitroglycerin infusion, which I ordered to discontinue or titrate down because the patient's chest pain was not improving with it, and his blood pressure was coming down with oral antihypertensives. I strongly feel that this patient's symptoms are likely GI related, as the seemingly were associated immediately after he had his EGD, he was complaining of this pain that he had approximately 2 weeks ago and is been ongoing since then. I discussed this with his billing and quality technician, he states that there is no findings on his EGD, the patient had these symptoms before, and there is never anything that is found. I did review the patient's case again with the cost accounting clerk at [facility], who could not give direction at this point as to whether he would be safe to discharge at this point. Given that the patient was still having chest pain, and I cannot definitively rule out that this is related to his heart, will maintain current plan to transfer the patient, as the hospitalist did not feel the patient would benefit from staying here, as he may need intervention after cardiac catheterization. Case discussed with the patient and his family, and they agreed with this plan of care.
[2018-04-09] MEDS: HYDROMORPHONE HCL INJ/PF 2 MG/ML AMPULE IV PRN ×7 (01:49→18:02)
[2018-04-09 01:56] LABS: HEMATOCRIT 39.6 % (37.9-51.0); MEAN CORPUSCULAR HEMOGLOBIN 26.9 pg (27.0-33.4); MEAN CORPUSCULAR HGB CONC 32.9 g/dL (32.0-36.0); MEAN CORPUSCULAR VOLUME 82 fl (80-97); PLATELET COUNT 162 10^3/uL (150-450); RED BLOOD COUNT 4.83 10^6/uL (4.35-5.55); RED CELL DISTRIBUTION WIDTH 14.1 % (11.5-14.0)
[2018-04-09 02:12] LABS: ABSOLUTE LYMPHOCYTES# (MANUAL) 2.5 10^3/uL (0.5-4.7); ABSOLUTE MONOCYTES # (MANUAL) 0.7 10^3/uL (0.1-1.4); ABSOLUTE NEUTROPHILS# (MANUAL) 0.8 10^3/uL (1.7-8.2); BASOPHILS % (MANUAL) 0 % (0-2); EOSINOPHILS % (MANUAL) 0 % (0-6); LYMPHOCYTES % (MANUAL) 61 % (13-45); MONOCYTES % (MANUAL) 18 % (3-13); NUCLEATED RED BLOOD CELLS 1 /100 WBC (0); SEGMENTED NEUTROPHILS % (MAN) 19 % (42-78); TOTAL CELLS COUNTED 100
[2018-04-09 02:13] LABS: PLATELET COMMENT ADEQUATE; RBC MORPHOLOGY COMMENT NORMO-CYTIC/CHROMIC; TOXIC VACUOLATION PRESENT
[2018-04-09] MEDS: DIPHENHYDRAMINE HCL 50 MG/ML VIAL IV PRN (03:47)
[2018-04-09] MEDS: METOCLOPRAMIDE HCL INJ/PF 10 MG/2 ML SDV IV PRN (03:47)
[2018-04-09] MEDS: ENOXAPARIN SODIUM INJ 40 MG/0.4 ML DISP.SYRIN SUBCUT SCH (07:20)
[2018-04-09] MEDS ORDERED: NORMAL SALINE 10 ML SDV (AFTER EACH USE) IV PRN (08:13)
[2018-04-09] MEDS ORDERED: DIPHENHYDRAMINE HCL 50 MG/ML VIAL IV PRN (08:16)
[2018-04-09] MEDS: AMLODIPINE BESYLATE 10 MG TABLET PO SCH (09:14)
[2018-04-09] MEDS: FAMOTIDINE INJ/PF 20 MG/2 ML SDV IV SCH (09:14)
[2018-04-09] MEDS: LISINOPRIL 10 MG TABLET PO SCH (09:14)
[2018-04-09 09:42] LABS: HEMATOCRIT 39.4 % (37.9-51.0); MEAN CORPUSCULAR HEMOGLOBIN 26.5 pg (27.0-33.4); MEAN CORPUSCULAR VOLUME 80 fl (80-97); PLATELET COUNT 137 10^3/uL (150-450); RED BLOOD COUNT 4.92 10^6/uL (4.35-5.55); RED CELL DISTRIBUTION WIDTH 13.6 % (11.5-14.0); WHITE BLOOD COUNT 3.3 10^3/uL (4.0-10.5)
[2018-04-09] MEDS ORDERED: NORMAL SALINE 10 ML SDV (SCHEDULED) IV SCH (10:00)
[2018-04-09] MEDS: ENOXAPARIN SODIUM INJ 100 MG/1 ML DISP.SYRIN SUBCUT SCH (10:52)
[2018-04-09 11:00] LABS: URINE AMPHETAMINES SCREEN NEGATIVE; URINE BARBITURATES SCREEN NEGATIVE; URINE BENZODIAZEPINES SCREEN NEGATIVE; URINE COCAINE SCREEN NEGATIVE; URINE MARIJUANA (THC) SCREEN NEGATIVE; URINE METHADONE SCREEN NEGATIVE; URINE PHENCYCLIDINE SCREEN NEGATIVE
[2018-04-09] MEDS ORDERED: METOPROLOL TARTRATE 100 MG TABLET PO ONE (16:47)
[2018-04-09] MEDS ORDERED: LISINOPRIL 10 MG TABLET PO ONE (16:50)
--- NOTE | 2018-04-09 16:56 | ER Document Report ---
Doctor's Note Notes: 04/09/18 16:53 The patient has now been here several days waiting on transport to [facility]. He has been ruled out for a cardiac origin for his chest pain. His blood pressures continue to run quite high. I discussed his medication with him and found that he saw his primary care provider about 2 weeks ago and at that time his blood pressure was in the 220- 230 systolic range. His primary care provider did not change his medications which were amlodipine 5 mg daily and hydrochlorothiazide 25 mg daily. This time I will give him metoprolol 100 mg p.o., and another 10 mg of lisinopril to add to the 10 mg daily he is receiving. He is also receiving 10 mg of amlodipine daily at this time. I suspect that I can discharge him home on lisinopril 20 mg daily, amlodipine 10 mg daily, continue his hydrochlorthiazide of 25 mg but I will combine that with the lisinopril for cost savings and will add the beta-thanh metoprolol at 50 mg twice daily. He can then follow-up with his primary care provider to see how well that is controlling his blood pressure and decide what additional medication changes would be necessary. 04/09/18 18:53 When the nurse was trying to discharge the patient, his parents had returned. They were wanting to know why he was not being transferred for further evaluation of his chest pain. I informed them that there was still not a bed available at [facility], and that we were able to exclude a cardiac cause for his chest discomfort. They were wanting to know why he was not being seen sent home with pain medication. I informed them that I was not going to be prescribing narcotics, as that was not an appropriate approach to his discomfort. He had unfortunately been receiving IV narcotics [id number] in the emergency room for the past few days. I re-emphasized that taking Prilosec OTC and antacids would probably be beneficial. I had to remind them that he had EGD just 2 weeks ago. He states he did not have pain until the EGD was done, however when I asked him why the EGD was done, he stated it was because of ulcers. They were then stating that they would just have to take him to [place], I told him that if they felt they needed to, that he would be seen and evaluated again while he was there and possibly they might find a reason for him to be admitted to the hospital. This disagreement has obviously devolved into negotiation about pain management , and has nothing to do with an urgent medical problem being missed. The charge nurse just approached me and reported that the patient and his family were refusing to be discharged. I informed them that this was unacceptable and I would not be any further involved in this patient's care.
[2018-04-09] MEDS ORDERED: CLONIDINE HCL 0.2 MG TABLET PO ONE (17:32)
[2018-04-09 18:33] VITALS: BP 147/109
== END 2018-04-09 19:45 | disposition home or self-care (01) ==
LOC: ER 08:38
DX: I51.7 Cardiomegaly (principal); R07.9 Chest pain, unspecified; N28.9 Disorder of kidney and ureter, unspecified; I16.0 Hypertensive urgency; R00.0 Tachycardia, unspecified; R94.31 Abnormal electrocardiogram [ECG] [EKG]
CPT/HCPCS: 93005; 36415; 87040; 83690; 85025; 85027; 80053; 81001; 84484; 80307; 71046; 78582; 71250; 93010 ×2; A9540; A9567; A9270 ×6; J1200; J3490 ×4; J2765; J2270; J1170 ×2; C9113; J2550; J2405; J7030; J7120; J1650; S0028; J1642; Q9969; S0164

== ENCOUNTER 2018-06-17 19:03 | Emergency (ER) | payer MEDICARE, MEDICAID ==
[2018-06-17] MEDS ORDERED: KETOROLAC TROMETHAMINE 60 MG/2 ML SDV IM ONE (19:23)
--- NOTE | 2018-06-17 19:24 | ER Document Report ---
ED Medical Screen (RME) - General Chief Complaint: Abdominal Pain Stated Complaint: ABDOMINAL PAIN,NAUSEA Time Seen by Provider: 06/17/18 19:22 Notes: 37 years old male with a history of HIV positivity was referred from the primary care physician because of chest pain abdominal pain back pain. For the last 2 weeks. No fever chills coughing. No nausea vomiting diarrhea. Diffuse chest wall tenderness noted in the left as well as right side. Both anterior and posterior region. Left lower quadrant tenderness TRAVEL OUTSIDE OF THE [place] IN LAST 30 DAYS: No - Related Data Allergies/Adverse Reactions: morphine Allergy (Verified 06/17/18 19:05) Penicillins Allergy (Verified 06/17/18 19:05) Edema Past Medical History - Past Medical History Cardiac Medical History: Reports: Hx Hypertension Renal/ Medical History: Denies: Hx Peritoneal Dialysis GI Medical History: Reports: Hx Gastroesophageal Reflux Disease, Hx Ulcer Physical Exam - Vital signs Vitals: Temp Pulse Resp BP Pulse Ox 97.8 F 103 H 20 246/149 H 99 06/17/18 19:07 06/17/18 19:07 06/17/18 19:07 06/17/18 19:07 06/17/18 19:07 Course - Vital Signs Vital signs: Temp Pulse Resp BP Pulse Ox 97.8 F 103 H 20 246/149 H 99 06/17/18 19:07 06/17/18 19:07 06/17/18 19:07 06/17/18 19:07 06/17/18 19:07
[2018-06-17 20:17] LABS: ABSOLUTE EOSINOPHILS # (AUTO) 0.1 10^3/uL (0.0-0.6); ABSOLUTE LYMPHOCYTES (AUTO) 2.4 10^3/uL (0.5-4.7); ABSOLUTE MONOCYTES (AUTO) 0.5 10^3/uL (0.1-1.4); BASOPHILS % (AUTO) 0.8 % (0-2); EOSINOPHILS % (AUTO) 3.3 % (0-6); HEMATOCRIT 44.6 % (37.9-51.0); LYMPHOCYTES % (AUTO) 59.6 % (13-45); MEAN CORPUSCULAR HEMOGLOBIN 27.4 pg (27.0-33.4); MEAN CORPUSCULAR HGB CONC 33.6 g/dL (32.0-36.0); MEAN CORPUSCULAR VOLUME 82 fl (80-97); MONOCYTES % (AUTO) 12.5 % (3-13); PLATELET COUNT 273 10^3/uL (150-450); RED BLOOD COUNT 5.47 10^6/uL (4.35-5.55); RED CELL DISTRIBUTION WIDTH 16.4 % (11.5-14.0); SEGMENTED NEUTROPHILS % (AUTO) 23.8 % (42-78); TOTAL CELLS COUNTED % (AUTO) 100 %
--- NOTE | 2018-06-17 20:25 | RADIOLOGY REPORT (SQ) ---
EXAM DESCRIPTION: ACUTE ABDOMEN SERIES COMPLETED DATE/TIME: 06/17/2018 8:17 pm REASON FOR STUDY: Abdominal pain COMPARISON: None. NUMBER OF VIEWS: Three views. TECHNIQUE: Frontal chest, supine abdomen and upright/decubitus abdomen radiographic images acquired. LIMITATIONS: None. FINDINGS: CHEST: Heart size is borderline. No free air beneath the diaphragms. FREE AIR: None. No abnormal gas collections. BOWEL GAS PATTERN: Nonobstructive pattern. No dilated loops or air fluid levels. CALCIFICATIONS: No suspicious calcifications. HARDWARE: None in the abdomen. SOFT TISSUES: No gross mass or suggestion of organomegaly. BONES: No acute fracture. No worrisome bone lesions. OTHER: No other significant finding. IMPRESSION: Borderline cardiomegaly. No acute findings in the abdomen. TECHNICAL DOCUMENTATION: JOB ID: [id number] [employer]- All Rights Reserved Reading location - IP/workstation name: [email or web address]
[2018-06-17 20:31] LABS: PROTHROMBIN TIME 12.6 SEC (11.4-15.4)
[2018-06-17 20:32] LABS: PARTIAL THROMBOPLASTIN TIME 28.7 SEC (23.5-35.8)
--- NOTE | 2018-06-17 20:35 | ER Document Report ---
ED General - General Mode of Arrival: Ambulatory Information source: Patient TRAVEL OUTSIDE OF THE [place] IN LAST 30 DAYS: No <DORIS SWANSON - Last Filed: 06/17/18 23:53> <GERALD MENSAH - Last Filed: 06/18/18 02:45> - General Chief Complaint: Abdominal Pain Stated Complaint: ABDOMINAL PAIN,NAUSEA Time Seen by Provider: 06/17/18 19:22 Notes: Patient is a 37-year-old male with HIV and hypertension presents to the emerg ency department complaining of chest pain onset 2 weeks ago. Patient states the pain has progressively worsened and denies any exacerbating or relieving factors. He states he has esophageal ulcers which has caused some difficulty swallowing. He states he has not taken any of his medications in the last 2 days. Patient states he presented to his PCP, [facility], earlier today and was directed to come into this emergency department due to recently being seen here. (DORIS SWANSON) - Related Data Allergies/Adverse Reactions: morphine Allergy (Verified 06/17/18 19:05) Penicillins Allergy (Verified 06/17/18 19:05) Edema Past Medical History - General Information source: Patient - Social History Smoking Status: Never Smoker Chew tobacco use (# tins/day): No Frequency of alcohol use: None Drug Abuse: None Family History: Reviewed & Not Pertinent Patient has suicidal ideation: No Patient has homicidal ideation: No - Past Medical History Cardiac Medical History: Reports: Hx Hypertension GI Medical History: Reports: Hx Gastroesophageal Reflux Disease, Hx Ulcer Infectious Medical History: Reports: Hx HIV <DORIS SWANSON - Last Filed: 06/17/18 23:53> Review of Systems - Review of Systems Constitutional: No symptoms reported EENT: No symptoms reported Cardiovascular: See HPI, Chest pain Respiratory: No symptoms reported Gastrointestinal: No symptoms reported Genitourinary: No symptoms reported Male Genitourinary: No symptoms reported Musculoskeletal: No symptoms reported Skin: No symptoms reported Hematologic/Lymphatic: No symptoms reported Neurological/Psychological: No symptoms reported -: Yes All other systems reviewed and negative <DORIS SWANSON - Last Filed: 06/17/18 23:53> Physical Exam <DORIS SWANSON - Last Filed: 06/17/18 23:53> - Vital signs Vitals: Temp Pulse Resp BP Pulse Ox 97.8 F 103 H 20 246/149 H 99 06/17/18 19:07 06/17/18 19:07 06/17/18 19:07 06/17/18 19:07 06/17/18 19:07 - Notes Notes: GENERAL: Alert, interacts well, hypertensive. No acute distress. HEAD: Normocephalic, atraumatic. EYES: Pupils equal, round, and reactive to light. Extraocular movements intact. ENT: Oral mucosa moist, tongue midline. NECK: Full range of motion. Supple. Trachea midline. LUNGS: Clear to auscultation bilaterally, no wheezes, rales, or rhonchi. No respiratory distress. HEART: Regular rate and rhythm. No murmurs, gallops, or rubs. ABDOMEN: Soft, epigastric tenderness to palpation. Non-distended. Bowel sounds p resent in all 4 quadrants. EXTREMITIES: Moves all 4 extremities spontaneously. NEUROLOGICAL: Alert and oriented x3. Normal speech. PSYCH: Normal affect, normal mood. SKIN: Warm, dry, normal turgor. No rashes or lesions noted. (DORIS SWANSON) Course - Laboratory Result Diagrams: 06/17/18 20:05 06/17/18 20:45 <DORIS SWANSON - Last Filed: 06/17/18 23:53> - Laboratory Result Diagrams: 06/17/18 20:05 06/17/18 20:45 - Diagnostic Test Radiology reviewed: Reports reviewed - EKG Interpretation by Al EKG shows normal: Sinus rhythm <GERALD MENSAH - Last Filed: 06/18/18 02:45> - Re-evaluation Re-evalutation: 06/18/18 02:37 Patient is a 37-year-old male who comes in complaining of abdominal and chest pain. He has not been taking his blood pressure medication because of his stomach pain. History of ulcers. No meds for ulcers. CTA wnl Trop neg x 2 EKG wnl. Feels better after medications Given home meds and BP stabilized. Patient has his medications at home. Should be able to tolerate now. NAD AVSS Stable for discharage F/u PMD this week. (GERALD MENSAH) - Vital Signs Vital signs: Temp Pulse Resp BP Pulse Ox 97.8 F 103 H 17 177/137 H 98 06/18/18 01:00 06/17/18 19:07 06/18/18 01:01 06/18/18 01:01 06/18/18 01:01 - Laboratory Laboratory results interpreted by me: 06/17/18 06/17/18 20:05 20:45 RDW 16.4 H Seg Neutrophils % 23.8 L Lymphocytes % 59.6 H Absolute Neutrophils 1.0 L Total Protein 8.5 H Discharge <DORIS SWANSON - Last Filed: 06/17/18 23:53> <GERALD MENSAH - Last Filed: 06/18/18 02:45> - Discharge Clinical Impression: Hypertensive urgency, Ulcer Condition: Stable Disposition: HOME, SELF-CARE Instructions: High Blood Pressure, Requiring Treatment ([facility]), Gastritis ([facility]) Additional Instructions: Please take your blood pressure medications as prescribed. Prescriptions: Dicyclomine HCl [Bentyl 20 mg Tablet] 20 mg PO TIDP PRN #30 tablet PRN Reason: Pantoprazole Sodium [Protonix] 40 mg PO DAILY #30 tablet. Sucralfate [Carafate 1 gm Tablet] 1 gm PO ACHS #120 tablet Scribe Attestation: 06/18/18 02:43 I personally performed the services described in the documentation, reviewed and edited the documentation which was dictated to the scribe in my presence, and it accurately records my words and actions. (GERALD MENSAH) Scribe Documentation - Scribe Written by Brennon:: Brennon Richmond, 06/17/2017 20:41 acting as scribe for :: Martin <DORIS SWANSON - Last Filed: 06/17/18 23:53>
[2018-06-17] MEDS ORDERED: PANTOPRAZOLE SODIUM 40 MG VIAL IV ONE (20:47)
[2018-06-17] MEDS ORDERED: DICYCLOMINE HCL INJ 20 MG/2 ML AMPULE IM ONE (20:47)
[2018-06-17] MEDS ORDERED: DIAZEPAM INJ 10 MG/2 ML DISP.SYRIN IV ONE (20:48)
[2018-06-17] MEDS ORDERED: METOPROLOL TARTRATE PF/INJ 5 MG/5 ML SDV IV ONE (20:53)
[2018-06-17 21:16] LABS: ALANINE AMINOTRANSFERASE 53 U/L (21-72); ALBUMIN 4.6 g/dL (3.5-5.0); ALKALINE PHOSPHATASE 91 U/L (38-126); ANION GAP 10 (5-19); ASPARTATE AMINO TRANSFERASE 44 U/L (17-59); BILIRUBIN,DIRECT 0.2 mg/dL (0.0-0.4); BILIRUBIN,TOTAL 0.3 mg/dL (0.2-1.3); BLOOD UREA NITROGEN 16 mg/dL (7-20); CALCIUM 9.5 mg/dL (8.4-10.2); CARBON DIOXIDE 25 mmol/L (22-30); CHLORIDE 105 mmol/L (98-107); GLUCOSE 94 mg/dL (75-110); LIPASE 70.3 U/L (23-300); POTASSIUM 3.9 mmol/L (3.6-5.0); SODIUM 139.6 mmol/L (137-145); TOTAL PROTEIN 8.5 g/dL (6.3-8.2)
[2018-06-17 21:17] LABS: ALCOHOL < 10 mg/dL (NONE DETECTED)
[2018-06-17] MEDS ORDERED: PROMETHAZINE HCL INJ 25 MG/1 ML VIAL IV ONE (21:35)
[2018-06-17 21:43] LABS: APPEARANCE,URINE CLEAR; BILIRUBIN,URINE NEGATIVE (NEGATIVE); COLOR,URINE YELLOW; GLUCOSE, URINE NEGATIVE (NEGATIVE); KETONES,URINE NEGATIVE (NEGATIVE); LEUKOCYTE ESTERASE,URINE NEGATIVE (NEGATIVE); NITRITE,URINE NEGATIVE (NEGATIVE); PROTEIN,URINE NEGATIVE (NEGATIVE); URINE SPECIFIC GRAVITY 1.017; UROBILINOGEN,URINE NEGATIVE mg/dL (<2.0)
[2018-06-17] MEDS ORDERED: FENTANYL CITRATE INJ/PF 100 MCG/2 ML AMPUL IV ONE ×2 (22:30→23:19)
--- NOTE | 2018-06-17 23:51 | RADIOLOGY REPORT (SQ) ---
EXAM DESCRIPTION: CT CHEST, abdomen and pelvis ANGIOGRAPHY WITHOUT THEN WITH IV CONTRAST COMPLETED DATE/TME: 06/17/2018 21:38 CLINICAL HISTORY: 37 years, Male, CP COMPARISON: CT abdomen/pelvis 09/20/2017. TECHNIQUE: Unknown number Images stored on PACS. All CT scanners at this facility use dose modulation, iterative reconstruction, and/or weight based dosing when appropriate to reduce radiation dose to as low as reasonably achievable (ALARA). [facility]: Dose Right [facility]: CareDose [facility]: Dose Right [facility]: Teradose 4D [facility]: Smart Amba Defence. Axial images were obtained with coronal and sagittal MIPS reconstructions performed on a dedicated workstation. LIMITATIONS: None. FINDINGS: CTA chest: Visualized thyroid gland enhances normally. Mediastinal vasculature enhances normally. Negative for thoracic aortic aneurysm or dissection. No intraluminal filling defect to suggest pulmonary most. Cardiomegaly. No mediastinal or hilar adenopathy. No pneumothorax. Osseous structures are grossly intact. Lungs are clear. Nonspecific nonenlarged borderline enlarged axillary chain lymph nodes bilaterally. Correlate with history. CTA abdomen/pelvis: Osseous structures of the abdomen/pelvis are grossly intact. The visualized liver, spleen, adrenal glands, pancreas, left kidney are unremarkable. Simple appearing right renal cysts. Gallbladder is present. Normal appendix. No gross evidence for bowel obstruction. Fat-containing anterior abdominal wall hernia. This is near the midline/umbilicus. There is a second smaller hernia slightly more inferiorly to the right of midline also containing fat. No free air or free fluid. The celiac axis, superior mesenteric artery, inferior mesenteric artery are widely patent. The renal arteries are widely patent bilaterally. No CTA evidence for abdominal aortic aneurysm or dissection. The common, internal, external iliac arteries are widely patent. No visible atheromatous change. IMPRESSION: Negative for thoracic or abdominal aortic aneurysm or dissection. No CTA evidence for pulmonary embolus or stenosis. Nonspecific nonenlarged borderline enlarged axillary chain lymph nodes bilaterally. Simple appearing right renal cysts. Small fat-containing anterior abdominal wall hernias, as above. Cardiomegaly. TECHNICAL DOCUMENTATION: Quality ID # 436: Final reports with documentation of one or more dose reduction techniques (e.g., Automated exposure control, adjustment of the mA and/or kV according to patient size, use of iterative reconstruction technique) copyright 2011 [employer]- All Rights Reserved
[2018-06-18] MEDS ORDERED: AMLODIPINE BESYLATE 5 MG TABLET PO ONE (00:24)
[2018-06-18] MEDS ORDERED: LISINOPRIL 10 MG TABLET PO ONE (00:24)
[2018-06-18] MEDS ORDERED: METOPROLOL TARTRATE 50 MG TABLET PO ONE (00:24)
[2018-06-18] MEDS ORDERED: HYDROCHLOROTHIAZIDE 25 MG TABLET PO ONE (00:25)
[2018-06-18] MEDS ORDERED: FLUCONAZOLE 200 MG/NS RTU 200 MG/100 ML RTUPB IV ONE (02:19)
[2018-06-18] MEDS ORDERED: FENTANYL CITRATE INJ/PF 100 MCG/2 ML AMPUL IV ONE (03:08)
[2018-06-18] MEDS ORDERED: PROMETHAZINE HCL INJ 25 MG/1 ML VIAL IV ONE (03:09)
[2018-06-18 04:06] VITALS: BP 134/68
--- NOTE | 2018-06-18 07:53 | EKG REPORT ---
SEVERITY:- ABNORMAL ECG - SINUS RHYTHM DENISE, CONSIDER BIATRIAL ABNORMALITIES LEFT VENTRICULAR HYPERTROPHY PROLONGED QT INTERVAL : Confirmed by: Deniz Bañuelos MD 18-Jun-2018 07:52:55
--- NOTE | 2018-06-18 08:10 | RADIOLOGY REPORT (SQ) ---
EXAM DESCRIPTION: CTA ABDOMEN/PELVIS W WO COMPLETED DATE/TIME: 06/17/2018 11:43 pm REASON FOR STUDY: evaluate aorta COMPARISON: None. TECHNIQUE: Please see report of the CTA chest for performance of procedure and radiologic interpreta tion. LIMITATIONS: None. FINDINGS: Please see report of the CTA chest for performance of procedure and radiologic interpretat ion. IMPRESSION: Please see report of the CTA chest for performance of procedure and radiologic interpret ation. TECHNICAL DOCUMENTATION: JOB ID: [id number] [employer]- All Rights Reserved Reading location - IP/workstation name: [email or web address]
== END 2018-06-18 04:14 | disposition home or self-care (01) ==
LOC: ER 19:03
DX: I16.0 Hypertensive urgency (principal); K22.10 Ulcer of esophagus without bleeding; R10.9 Unspecified abdominal pain; R11.0 Nausea; R07.9 Chest pain, unspecified; B20 Human immunodeficiency virus [HIV] disease; I10 Essential (primary) hypertension; Z88.6 Allergy status to analgesic agent; Z88.0 Allergy status to penicillin
CPT/HCPCS: 93005; 36415; 80307; 83690; 85025; 85610; 85730; 80053; 81001; 84484; 74022; 71275; 74174; 93010; J3360; J0500; J3010 ×2; J3490; A9270 ×3; C9113; J2550 ×2; J1450; 96365; 96372; 96375; 96376; 99285; S0164

== ENCOUNTER 2018-07-29 19:06 | Emergency (ER) | payer MEDICARE, MEDICAID ==
[2018-07-29] MEDS ORDERED: KETOROLAC TROMETHAMINE INJ/PF 30 MG/1 ML SDV IV ONE (19:21)
[2018-07-29] MEDS ORDERED: RINGERS SOLUTION,LACTATED 1,000 ML IV ONE (19:21)
[2018-07-29] MEDS ORDERED: ONDANSETRON HCL INJ/PF 4 MG/2 ML SDV IV ONE (19:21)
--- NOTE | 2018-07-29 19:24 | ER Document Report ---
ED General - General Stated Complaint: NAUSEA/VOMITING/DIARRHEA Time Seen by Provider: 07/29/18 19:20 Notes: Patient is a 38-year-old male with a past medical history of HIV, esophageal ulcers, presents complaining of 4 days of nausea, vomiting, diarrhea as well as 1 week of coughing. Has had fever at home recorded greater than 101 F 4 days ago but has not had recurrent fever since that time. Has struggled to tolerate oral intake since onset of symptoms. Notes diffuse musculoskeletal discomfort and pain in his chest, abdomen and back. Pain is described as a throbbing, aching pain worsened when he coughs. Nothing improves his symptoms. Denies history of similar symptoms in the recent past. Has not seen his primary care physician regarding today's concerns. States that he came today to the emergency department via emergency medical services as his symptoms were failing to improve. TRAVEL OUTSIDE OF THE [place] IN LAST 30 DAYS: No - Related Data Allergies/Adverse Reactions: morphine Allergy (Verified 06/17/18 19:05) Penicillins Allergy (Verified 06/17/18 19:05) Edema Past Medical History - General Information source: Patient - Social History Smoking Status: Never Smoker Frequency of alcohol use: None Drug Abuse: None Family History: Reviewed & Not Pertinent - Past Medical History Cardiac Medical History: Reports: Hx Hypertension Renal/ Medical History: Denies: Hx Peritoneal Dialysis GI Medical History: Reports: Hx Gastroesophageal Reflux Disease, Hx Ulcer Infectious Medical History: Reports: Hx HIV Review of Systems - Review of Systems Notes: Constitutional: Positive for fever. HENT: Negative for sore throat. Eyes: Negative for visual changes. Cardiovascular: Negative for chest pain. Respiratory: Positive for cough Gastrointestinal: Positive for abdominal cramping, vomiting and diarrhea Genitourinary: Negative for dysuria. Musculoskeletal: Positive for diffuse musculoskeletal pain Skin: Negative for rash. Neurological: Negative for headaches, weakness or numbness. 10 point ROS negative except as marked above and in HPI. Physical Exam - Vital signs Interpretation: Normal Notes: PHYSICAL EXAMINATION: GENERAL: Appears moderately uncomfortable but in no acute distress HEAD: Atraumatic, normocephalic. EYES: Pupils equal round and reactive to light, extraocular movements intact, sclera anicteric, conjunctiva are normal. ENT: nares patent, oropharynx clear without exudates. Moderately dry mucous membranes. NECK: Normal range of motion, supple without lymphadenopathy LUNGS: Breath sounds clear to auscultation bilaterally and equal. Faint end expiratory wheezing in the bilateral upper lobes HEART: Regular rate and rhythm without murmurs ABDOMEN: Soft, nontender, normoactive bowel sounds. No guarding, no rebound. No masses appreciated. EXTREMITIES: Normal range of motion, no pitting or edema. No cyanosis. NEUROLOGICAL: No focal neurological deficits. Moves all extremities spont aneously and on command. PSYCH: Normal mood, normal affect. SKIN: Warm, Dry, normal turgor, no rashes or lesions noted. Course - Re-evaluation Re-evalutation: 07/29/18 19:24 Influenza MDM patient presents with cough, vomiting, diarrhea, and fever at home consistent with a diagnosis of influenza. Influenza testing is positive. Patient is overall well in appearance, in no acute distress. Lung sounds clear. Able to tolerate oral intake without difficulty here in the emergency department. After risks and benefits conversation with the patient regarding the use of Tamiflu, they have elected to use supportive care without Tamiflu based on concerns about lack of efficacy as well as the side effect profile. Patient symptom duration is also outside the window start this medication. At this time will discharge with return precautions and follow-up recommendations. Verbal discharge instructions given a the bedside and opportunity for questions given. Medication warnings reviewed. Patient is in agreement with this plan and has verbalized understanding of return precautions and the need for primary care follow-up in the next 24-72 hours. - Laboratory Result Diagrams: 07/29/18 19:59 07/29/18 19:59 Discharge - Discharge Clinical Impression: Influenza A, Nausea vomiting and diarrhea Condition: Stable Disposition: HOME, SELF-CARE Additional Instructions: You have influenza. There is no treatment that is effective for this diagnosis other than supportive care at home. This includes drinking plenty of fluids, using Tylenol or ibuprofen as needed for fever and discomfort, and Phenergan as needed for nausea and vomiting. Please follow closely with you primary care physician the next 1-2 days regarding this diagnosis. Return to the emergency department immediately if you began to have persistent vomiting prevents you from being able to keep fluids down for more than 12 hours, you pass out, you began having difficulty breathing, you become confused, or you have any other symptoms that are worrisome to you. Prescriptions: Promethazine HCl [Phenergan 25 mg Tablet] 1 - 2 tab PO Q6H PRN #15 tablet PRN Reason:
[2018-07-29 20:01] LABS: A TYPE INFLUENZA AG POSITIVE (NEGATIVE); B INFLUENZA AG NEGATIVE (NEGATIVE)
[2018-07-29] MEDS ORDERED: PROMETHAZINE HCL INJ 25 MG/1 ML VIAL IV ONE (20:06)
[2018-07-29 20:09] LABS: HEMATOCRIT 40.3 % (37.9-51.0); HEMOGLOBIN 13.5 g/dL (13.5-17.0); MEAN CORPUSCULAR HEMOGLOBIN 27.4 pg (27.0-33.4); MEAN CORPUSCULAR HGB CONC 33.5 g/dL (32.0-36.0); MEAN CORPUSCULAR VOLUME 82 fl (80-97); PLATELET COUNT 208 10^3/uL (150-450); RED BLOOD COUNT 4.94 10^6/uL (4.35-5.55); WHITE BLOOD COUNT 3.1 10^3/uL (4.0-10.5)
[2018-07-29 20:28] LABS: ABSOLUTE LYMPHOCYTES# (MANUAL) 1.8 10^3/uL (0.5-4.7); ABSOLUTE MONOCYTES # (MANUAL) 0.1 10^3/uL (0.1-1.4); ABSOLUTE NEUTROPHILS# (MANUAL) 1.2 10^3/uL (1.7-8.2); BAND NEUTROPHILS % (MANUAL) 1 % (3-5); BASOPHILS % (MANUAL) 0 % (0-2); EOSINOPHILS % (MANUAL) 0 % (0-6); LYMPHOCYTES % (MANUAL) 54 % (13-45); MONOCYTES % (MANUAL) 3 % (3-13); SEGMENTED NEUTROPHILS % (MAN) 39 % (42-78); TOTAL CELLS COUNTED 100
[2018-07-29 20:29] LABS: ANISOCYTOSIS SLIGHT; TOXIC VACUOLATION PRESENT
[2018-07-29 20:30] LABS: PLATELET COMMENT ADEQUATE
--- NOTE | 2018-07-29 20:40 | RADIOLOGY REPORT (SQ) ---
EXAM DESCRIPTION: XR CHEST 1 VIEW COMPLETED DATE/TME: 07/29/2018 20:21 CLINICAL HISTORY: 38 years, Male, cough, sob COMPARISON: None. NUMBER OF VIEWS: 1 TECHNIQUE: Portable chest LIMITATIONS: None. FINDINGS: Cardiomegaly. Lungs are clear. No pneumothorax IMPRESSION: Cardiomegaly. Lungs are clear copyright 2011 [employer]- All Rights Reserved
[2018-07-29 20:45] LABS: ALANINE AMINOTRANSFERASE 57 U/L (21-72); ALBUMIN 4.1 g/dL (3.5-5.0); ALKALINE PHOSPHATASE 89 U/L (38-126); ANION GAP 10 (5-19); ASPARTATE AMINO TRANSFERASE 76 U/L (17-59); BILIRUBIN,DIRECT 0.2 mg/dL (0.0-0.4); BILIRUBIN,TOTAL 0.3 mg/dL (0.2-1.3); BLOOD UREA NITROGEN 10 mg/dL (7-20); CARBON DIOXIDE 30 mmol/L (22-30); CHLORIDE 103 mmol/L (98-107); GLUCOSE 102 mg/dL (75-110); LIPASE 133.1 U/L (23-300); POTASSIUM 3.9 mmol/L (3.6-5.0); SODIUM 142.6 mmol/L (137-145); TOTAL PROTEIN 7.7 g/dL (6.3-8.2)
[2018-07-29] MEDS ORDERED: ACETAMINOPHEN 325 MG TABLET PO ONE (20:56)
[2018-07-29 22:48] VITALS: BP 156/86
== END 2018-07-29 22:48 | disposition home or self-care (01) ==
LOC: ER 19:06
DX: J10.1 Influenza due to other identified influenza virus with other respiratory manifestations (principal); R11.2 Nausea with vomiting, unspecified; R19.7 Diarrhea, unspecified; R05 Cough; R50.9 Fever, unspecified; R10.9 Unspecified abdominal pain; B20 Human immunodeficiency virus [HIV] disease
CPT/HCPCS: 99284; 96361; 96374; 96375; 36415; 83690; 85025; 80053; 87804; 71045; A9270; J1885; J2550; J2405; J7120